=== PATIENT | female | born 2000 | race Hispanic/Latino ===

== ENCOUNTER 2020-07-16 16:51 | Emergency (ER) | payer OTHER, SELFPAY | END 2020-07-16 17:41 | disposition home or self-care (01) | LOC: ERS 16:51 | DX: R11.2 Nausea with vomiting, unspecified (principal) | CPT/HCPCS: 99283 ==

== ENCOUNTER 2022-07-07 10:48 | Emergency (ER) | payer SELFPAY ==
[2022-07-07] MEDS ORDERED: Ketorolac Tromethamine 30 MG/ML VIAL ONE (11:44)
== END 2022-07-07 12:41 | disposition home or self-care (01) ==
LOC: ERS 10:48
DX: L30.9 Dermatitis, unspecified (principal)
CPT/HCPCS: 96372; 99283; J1885

== ENCOUNTER 2022-08-25 11:06 | Emergency (ER) | payer SELFPAY | END 2022-08-25 11:57 | disposition home or self-care (01) | LOC: ERS 11:06 | DX: H02.89 Other specified disorders of eyelid (principal) | CPT/HCPCS: 99282 ==